=== PATIENT | female | born 1990 | race Hispanic/Latino ===

== ENCOUNTER → 2017-04-22 | Outpatient (CLI) | payer MEDICAID | END | disposition home or self-care (01) | LOC: SHCH 09:50 | PROVIDERS: ATTEND Internal Medicine Cardiovascular Disease | DX: I11.0 Hypertensive heart disease with heart failure (principal); I50.9 Heart failure, unspecified | CPT/HCPCS: 93306 ==

== ENCOUNTER 2017-12-24 13:27 | Day surgery (SDC) | payer MEDICAID ==
[~2017-12-24] VITALS: Ht 162.6 cm; Wt 87.7 kg
[2017-12-24 13:50] VITALS: BP 145/74
[2017-12-24 14:17] LABS: INR 1.01 (0.85-1.15); PROTHROMBIN TIME 10.6 SEC (9.6-11.6)
[2017-12-24] MEDS ORDERED: SODIUM CHLORIDE 0.9% 1000ML 1,000 ML IV ONE (14:47)
[2017-12-24] MEDS ORDERED: MEPERIDINE-PF 50 MG/ML SYG ONE (16:36)
[2017-12-24 17:20] VITALS: BP 163/97
[2017-12-24 17:37] VITALS: BP 148/83
[2017-12-24 17:50] VITALS: BP 151/83
[2017-12-24 18:05] VITALS: BP 153/86
[2017-12-24 18:35] VITALS: BP 141/76
== END 2017-12-24 18:55 | disposition home or self-care (01) ==
LOC: RAH 13:27
PROVIDERS: ATTEND Internal Medicine Hematology & Oncology
DX: D48.0 Neoplasm of uncertain behavior of bone and articular cartilage (principal); I12.0 Hypertensive chronic kidney disease with stage 5 chronic kidney disease or end stage renal disease; N18.5 Chronic kidney disease, stage 5; Z88.8 Allergy status to other drugs, medicaments and biological substances
CPT/HCPCS: 20220; 36415; 77012; 85610; 85730; 88305; 88311; 88313; A4606; C1830; J2175; J7030; 21550

== ENCOUNTER 2021-02-12 06:11 | Day surgery (SDC) | payer MEDICAID ==
[~2021-02-12] VITALS: Ht 162.6 cm; Wt 83.7 kg
[~2021-02-12 06:11] MED LIST: ACET-2743 PO; CINA60TA PO; CYCL-309 PO; FOLI1TAB85 PO; GABA-529 PO; LEVE-43 PO; METO100T14 PO; MV-M1TAB20 PO; PANT40TA PO; SUCR500T PO; auryxia PO
[2021-02-12] MEDS ORDERED: 0.9%NACL 1000ML 1,000 ML IV ONE (06:17)
[2021-02-12 06:50] VITALS: BP 144/88
[2021-02-12 07:04] LABS: POTASSIUM 3.8 mmol/L (3.5-5.1)
[2021-02-12] MEDS ORDERED: PROPOFOL 10 MG/ML 20ML VIAL IV ONE (07:57)
[2021-02-12] MEDS ORDERED: MIDAZOLAM HCL 1 MG/ML 2ML VIAL ONE (08:33)
[2021-02-12 09:10] VITALS: BP 135/89
== END 2021-02-12 09:15 | disposition home or self-care (01) ==
LOC: DAH 06:11 → ENDO 06:11
PROVIDERS: ATTEND Internal Medicine Gastroenterology
DX: R19.5 Other fecal abnormalities (principal); Z20.822 Contact with and (suspected) exposure to COVID-19; K92.2 Gastrointestinal hemorrhage, unspecified; K63.89 Other specified diseases of intestine; I12.0 Hypertensive chronic kidney disease with stage 5 chronic kidney disease or end stage renal disease; K21.9 Gastro-esophageal reflux disease without esophagitis; N18.6 End stage renal disease; D64.9 Anemia, unspecified; F32.9 Major depressive disorder, single episode, unspecified; F41.9 Anxiety disorder, unspecified; Z72.89 Other problems related to lifestyle; Z98.890 Other specified postprocedural states; Z79.899 Other long term (current) drug therapy; Z99.2 Dependence on renal dialysis
CPT/HCPCS: 36415; 45378; 80048; 84703; 87635; A4215 ×2; A4221; A4222; A4223; A4606; A4620; A4657; A4663; C9803; J2250; J3490; J7030; J2704